=== PATIENT | male | born 1935 | race Caucasian/White ===

== ENCOUNTER → 2016-09-08 | Outpatient (CLI) | payer MEDICARE ==
[~2016-09-08] MED LIST: ALLEGRA; ASPIRIN; CERTAGEN PO; COMBIGAN EYE DRO5 ML; COSOPT EYE DROPS5 ML; DYAZIDE 37.5/251 CAP; FISH OIL 1,0001 CAP PO; FLOMAX0.4 M1 PO; HYDROCODON-ACE1 EACH PO; HYDROCODONE-A1 UDTA2; IBUPROFEN; LISINOPRIL; PRILOSEC; RHINOCORT AQUA8.6 GM; TOPROL XL; VITAMIN D400 UNI1 PO; VYTORIN 10/40 T1 TAB PO; ZOCOR
--- NOTE | ~2016-09-08 | US113 ---
[facility] A Service of [facility] RADIOLOGY TEXT RESULTS PATIENT: KARL ORTIZ LOCATION: [facility] : 31 UNIT #: [id number] AGE: [address]: Jonas Cruz MD SEX: M ORDER DR: [id number] [facility] [address] [place], [place] [address] [id number] MR#: [id number] Acc #: [id number] NAME: KARL ORTIZ : 1935 SEX: M STUDY DATE/TIME: 09/08/2016 13:25 UNIT: [facility] ROOM: STUDY DESCRIPTION: US Scrotal Duplex Complete Attending Physician: Jonas Cruz M.D. Referring Physician: Jonas Cruz M.D. Ordering Physician: Jonas Cruz M.D. Primary Care Physician: Tobias Gonzalez M.D. MEDICAL IMAGING REPORT This report is preliminary unless electronic signature is present EXAM Scrotal ultrasound with Doppler HISTORY Hydrocele. Scrotal swelling, new onset. FINDINGS Ultrasound examination of the scrotum and testes was performed with vang-scale and Doppler. There is a large right hydrocele and a moderate sized left hydrocele. No testicular mass or enlargement. Normal blood flow in both testes on Doppler. No epididymal mass or enlargement. IMPRESSION 1. Large right hydrocele. 2. Moderate-sized left hydrocele. 3. No testicular mass or enlargement. Normal blood flow to both testes on color Doppler. Dictated by... Jorge King M.D. THIS IS AN ELECTRONICALLY VERIFIED REPORT Jorge King M.D. at 09/09/2016 2:17 PM DFL/lynette TD: 09/09/2016 12:06 JOB #: [id number] [facility] A Service of [facility] RADIOLOGY TEXT RESULTS PATIENT: KARL ORTIZ LOCATION: [facility] : 31 UNIT #: [id number] AGE: [address]: Jonas Cruz MD SEX: M ORDER DR: MEDICAL IMAGING REPORT Page 1 of 1 COPY
== END | disposition home or self-care (01) ==
LOC: CGUS 12:54
DX: N43.3 Hydrocele, unspecified (principal); N50.89 Other specified disorders of the male genital organs
CPT/HCPCS: 93975